=== PATIENT | male | born 1980 | race African-American/Black ===

== ENCOUNTER 2019-05-04 15:50 | Emergency (ER) | payer OTHER ==
--- NOTE | 2019-05-04 16:15 | PDOC ---
History of Present Illness - General Chief Complaint: Chest Pain Stated Complaint: CHEST PAIN Time Seen by Provider: 05/04/19 16:13 - History of Present Illness Initial Comments: 05/04/19 16:15 38 yo F PMH cocaine use, alcohol use (2-3 beers daily for the last year), opiate use (trying to get back on suboxone), 1/2 ppd smoker, sent from [facility] initial evaluation with chest pain Smokes 1/2 ppd. Patient reportedly began experiencing L sided chest discomfort during evaluation at [facility], sharp, 12/30, non-radiating, lasting about 45 minutes. No N/V, diaphoresis, or SOB. Pain resolved without intervention. Reports that he has not had this type of chest pain in the past. Last cocaine use 2 days ago. Denies current CP, SOB, abd pain, ELLER, N/V, fevers/chills, constipation/diarrhea. Past History - Past Medical History Allergies/Adverse Reactions: Allergies Allergy/AdvReac Type Severity Reaction Status Date / Time No Known Allergies Allergy Verified 07/12/13 14:20 Home Medications: Ambulatory Orders Buprenorphine HCl/Naloxone HCl [Suboxone 12 mg-3 mg Sl Film] 1 each SL DAILY #7 film MDD 1 05/04/19 Losartan Potassium [Cozaar] 100 mg PO DAILY 05/04/19 Triamterene/Hydrochlorothiazid [Dyazide 37.5-25 Capsule] 1 each PO DAILY Anemia: No Asthma: No Cancer: No Cardiac Disorders: No COPD: No CHF: No Diabetes: No GI Disorders: No Disorders: No HTN: Yes (poor adherence) Hypercholesterolemia: No Liver Disease: No Seizures: No Thyroid Disease: No - Immunization History Immunization Up to Date: Yes - Psycho Social/Smoking Cessation Hx Smoking Status: No Smoking History: Current every day smoker Years of Tobacco Use: 4 Have you smoked in the past 12 months: Yes Number of Cigarettes Smoked Daily: 12 'Breaking Loose' booklet given: 05/04/19 Hx Alcohol Use: Yes (one 24 oz beer) Drug/Substance Use Hx: Yes Substance Use Type: Cocaine, Opiates Hx Substance Use Treatment: Yes Review of Systems - Review of Systems Comments:: 05/04/19 16:29 GENERAL/CONSTITUTIONAL: No fever or chills. No weakness. HEAD, EYES, EARS, NOSE AND THROAT: No change in vision. No ear pain or discharge. No sore throat. CARDIOVASCULAR: L sided chest pain, no shortness of breath. RESPIRATORY: No cough, wheezing, or hemoptysis. GASTROINTESTINAL: No nausea, vomiting, diarrhea or constipation. GENITOURINARY: No dysuria, frequency, or change in urination. MUSCULOSKELETAL: No joint or muscle swelling or pain. No neck or back pain. SKIN: No rash NEUROLOGIC: No headache, vertigo, loss of consciousness, or change in strength/ sensation. ENDOCRINE: No increased thirst. No abnormal weight change. HEMATOLOGIC/LYMPHATIC: No anemia, easy bleeding, or history of blood clots. ALLERGIC/IMMUNOLOGIC: No hives or skin allergy *Physical Exam - Physical Exam 05/04/19 16:30 Gen: well-developed, well-nourished, obese, NAD Neuro: AAOX4, CN II-XII intact, FTN intact, EOMI, PERRLA, 5/5 strength, SILT HEENT: atraumatic, normocephalic, dry mucous membranes Neck: trachea midline, supple CV: regular rate, regular rhythm, no murmurs, rubs, or gallops Pulm: CTA b/l, no wheezing Abd: soft, non-distended, non-tender MSK: full ROM, intact pulses Extr: no edema, no deformities Skin: warm, dry Heart Score/ECG Review - History History: Slightly suspicious - Electrocardiogram EKG: Normal - Age Age: </= 45 - Risk Factors Risk Factors Heart Score: Yes Hx Hypertension, Yes Smoking History, Yes Hx Obesity Based on the list above the patient has:: >/=3 risk factors or Hx atherosclerotic disease - Troponin Troponin: </= normal limit - Score Heart Score - Total: 2 ED Treatment Course - LABORATORY CBC & Chemistry Diagram: 05/04/19 16:45 05/04/19 16:45 Medical Decision Making - Medical Decision Making 05/04/19 16:30 Concern for potential ACS, particularly considering cocaine use, vs MSK pain. - CBC, CMP - EKG, trop - CXR - reassess EKG normal sinus at 69 bpm, poor baseline quality, no ischemic changes 05/04/19 17:30 Patient wanting to leave. Explained that the workup is not complete and we cannot rule out heart disease. Patient willing to stay for now. 05/04/19 17:35 Labs wnl, first trop negative. 05/04/19 17:41 CXR with no acute pathology. Discharge - Discharge Information Problems reviewed: Yes Clinical Impression/Diagnosis: Chest pain Disposition: AGAINST MEDICAL ADVICE - Follow up/Referral Referrals: Amada Dhaliwal MD [Staff Physician] - - Patient Discharge Instructions Patient Printed Discharge Instructions: DI for Atypical Chest Pain Additional Instructions: You were seen with sharp left sided chest pain lasting about 45 minutes. Your EKG did not show any concerning findings, and your labs were unconcerning. Your chest X ray also did not show any acute issues. Please follow up with your primary care doctor within one week. Return to the ED if you develop worsening symptoms. - Post Discharge Activity
[2019-05-04 16:50] LABS: BASO % 0.7 % (0-2.0); EOS % 8.3 % (0-4.5); HEMATOCRIT 47.3 % (35.4-49); HEMOGLOBIN 15.7 GM/dL (11.7-16.9); LYMPH % 19.8 % (8-40); MCH 29.3 pg (25.7-33.7); MCHC 33.2 g/dl (32.0-35.9); MEAN CELL VOLUME 88.3 fl (80-96); MEAN PLT VOLUME 9.2 fl (7.5-11.1); MONO % 7.4 % (3.8-10.2); NEUT % 63.8 % (42.8-82.8); PLATELET COUNT 253 K/MM3 (134-434); RBC 5.36 M/mm3 (4.00-5.60); RDW 13.9 % (11.9-15.9); WHITE BLOOD COUNT 6.9 K/mm3 (4.0-10.0)
[2019-05-04 16:51] VITALS: BP 149/102; PULSE 78; TEMP 98.6; BMI 42.7
--- NOTE | 2019-05-04 17:01 | PDOC ---
Attending Attestation - Resident Resident Name: Alverto Garcia - HPI HPI: 05/04/19 17:20 Pt presents to the ED complaining of the acute onset of sharp, non radiating, substernal chest pain without nausea, vomiting or shortness of breath. Denies prior history of similar pain. + family history of cardiac disease. + HTN. Patient is an active cocaine user--last use was two days ago. Currently chest pain free. - Physicial Exam PE: 05/04/19 17:22 Agree with resident exam. Patient is alert and oriented and in no acute distress. Lungs are clear. CV rrr no m/r/g - Medical Decision Making 05/04/19 17:23 Pt presents to the ED complaining of chest pain that started 2 hours prior to admission. Currently chest pain free. EKg shows no evidence of ischemia. Will check labs and cardiac enzymes x 2, likely discharge home if negative.
[2019-05-04 17:17] LABS: BILIRUBIN,TOTAL 0.4 mg/dL (0.2-1); BLOOD UREA NITROGEN 15.4 mg/dL (7-18); CALCIUM 9.3 mg/dL (8.5-10.1); POTASSIUM 4.2 mmol/L (3.5-5.1); TOT PROT 8.1 g/dl (6.4-8.2)
--- NOTE | 2019-05-05 10:18 | EKG ---
Test Reason : Blood Pressure : / mmHG Vent. Rate : 069 BPM Atrial Rate : 069 BPM P-R Int : 168 ms QRS Dur : 076 ms QT Int : 410 ms P-R-T Axes : 017 022 012 degrees QTc Int : 439 ms POOR DATA QUALITY, INTERPRETATION MAY BE ADVERSELY AFFECTED NORMAL SINUS RHYTHM NORMAL ECG WHEN COMPARED WITH ECG OF 26-NOV-2011 23:12, NO SIGNIFICANT CHANGE WAS FOUND Confirmed by YOCASTA BARBOSA, YVAN ([id number]) on 05/05/2019 10:18:26 AM Referred By: Confirmed By:YVAN RUST MD
== END 2019-05-04 18:00 | disposition left against medical advice (07) ==
LOC: JER 15:50
DX: R07.9 Chest pain, unspecified (principal); F11.90 Opioid use, unspecified, uncomplicated; F17.210 Nicotine dependence, cigarettes, uncomplicated; F14.90 Cocaine use, unspecified, uncomplicated; F10.99 Alcohol use, unspecified with unspecified alcohol-induced disorder
CPT/HCPCS: 36415; 71045-TC-FY; 80053; 82550; 84484; 85025; 93005; 93010; 99284-25